=== PATIENT | female | born 1945 | race Caucasian/White ===

== ENCOUNTER 2018-10-25 11:38 | Inpatient (IN) ==
[2018-10-25] MEDS ORDERED: MORPHINE IV ONE (11:55)
[2018-10-25] MEDS ORDERED: ZOFRAN IV ONE (11:55)
[2018-10-25] MEDS ORDERED: NORFLEX IV ONE (11:55)
[2018-10-25 12:56] LABS: BASO# 0.03 X1000 (0.0-0.2); BASO% 0.2 % (0.0-0.8); EOS# 0.05 X1000 (0.0-0.7); EOS% 0.3 % (0.0-10.0); HEMATOCRIT 35.1 % (37.0-47.0); HEMOGLOBIN 11.3 g/dL (12.0-16.0); LYMPH# 0.97 X1000 (1.2-3.4); MCH 29.4 PG (27-31); MCHC 32.2 g/dL (33-37); MCV 91.4 FL (81-99); MONO# 0.64 X1000 (0.11-0.59); MONO% 3.9 % (1.7-9.3); MPV 10.5 FL (7.4-10.4); NEUT# 14.55 X1000 (1.4-6.5); NEUT% 89.6 % (42.2-75.2); PLT 375 X1000 (130-400); RBC 3.84 XMIL (4.2-5.4); RDW 16.2 % (11.5-14.5); WBC 16.24 X1000 (4.8-10.8)
[2018-10-25 12:57] LABS: AGAP 12; ALB/GLOB RATIO 1.4; ALBUMIN 3.3 g/dL (3.5-5.0); ALKALINE PHOSPHATASE 82 U/L (32-104); BUN 15 mg/dL (8-22); CALCIUM 8.2 mg/dL (8.8-10.2); CHLORIDE 102 mmol/L (98-107); COSMO 283; CREATININE 0.8 mg/dL (0.5-0.9); ESTIMATED GFR > 60; GLUCOSE 147 mg/dL (70-104); GOT 18 U/L (10-30); GPT 13 U/L (10-36); POTASSIUM 3.6 mmol/L (3.5-5.1); SODIUM 140 mmol/L (136-145); TCO2 26 mmol/L (25-35); TOTAL BILIRUBIN 0.31 mg/dL (0.20-1.00); TOTAL PROTEIN 5.7 g/dL (6.3-8.3)
[2018-10-25] MEDS ORDERED: DILAUDID IV ONE (13:26)
--- NOTE | 2018-10-25 13:31 | Diag Imaging Result Doc PS360 ---
EXAM: HIP 1 VIEW RIGHT INDICATION: fall, right hip pain TECHNIQUE: 3 views COMPARISON: None. FINDINGS: There is an acute fracture through the right femoral neck. There is superior displacement of the femoral shaft. A metallic plate is associated with the femoral shaft from a prior injury. No other fractures are appreciated. The surrounding soft tissues are essentially unremarkable. IMPRESSION: Fracture of the right femoral neck as described. Electronically signed by Mark Anthony Fuentes 10/25/2018 1:29 PM
[2018-10-25] MEDS ORDERED: NS 1,000 ML IV ONE (13:39)
[2018-10-25] MEDS ORDERED: ZOFRAN IV PRN (13:39)
[2018-10-25] MEDS ORDERED: DILAUDID IM PRN (13:39)
--- NOTE | 2018-10-25 13:39 | Diag Imaging Result Doc PS360 ---
EXAM: CHEST-1 VIEW INDICATION: admit TECHNIQUE: One view COMPARISON: None. FINDINGS: There is elevation of the right hemidiaphragm. There is a right paratracheal masslike density that is nonspecific but could represent a substernal thyroid goiter. The lungs are clear, otherwise. There is no discrete pleural fluid collection or pneumothorax. The cardiac silhouette and central vasculature are unremarkable. IMPRESSION: Nonspecific right paratracheal masslike density that could represent a substernal thyroid. Otherwise, no definite acute chest pathology. Electronically signed by Mark Anthony Fuentes 10/25/2018 1:37 PM
--- NOTE | 2018-10-25 13:39 | PROVIDER DOCUMENTATION ---
This chart was entered by Linda David Scribe, acting as scribe for Velvet Johns MD. 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 pt has obvious shortened and rotated RLE with right hip pain. pt denies LOC or head trauma in fall. pt on exam sts palpation and movement makes it worse Quality of Pain: reports: sharp, stabbing Severity in ED: moderate Onset/Duration: just prior to arrival Timing: still present, intermittent Modifying Factors: improves with: immobilization. worse with: movement, palpation Any recent injury?: Yes (fall at home) Locality of Occurance: Home Similar Symptoms Previously?: No Recently seen or treated by another doctor?: No - FALL INJURY Location of Pain/Injury: reports: other (hip) Reason for Fall: reports: tripped Symptoms prior to fall:: reports: none Injury Associated Symptoms: reports: snap/crack/pop sensation, unable to bear weight, trouble walking. denies: nausea, vomiting Review of Systems - Adult - REVIEW OF SYSTEMS - ADULT Constitutional: reports: no symptoms reported Eyes: denies: blurred vision, double vision Ears, Nose, Mouth & Throat: reports: no symptoms reported Cardiovascular: denies: chest pain, palpitations Respiratory: reports: no symptoms reported Gastrointestinal: denies: abdominal pain, diarrhea, nausea, vomiting Genitourinary: reports: no symptoms reported Musculoskeletal: reports: see HPI, joint pain. denies: back pain, neck pain Integumentary: reports: no symptoms reported Neurological: denies: dizziness/vertigo, headache/migraines Psychiatric: reports: no symptoms reported Endocrine: reports: no symptoms reported Hematologic/Lymphatic: reports: no symptoms reported Allergic/Immunologic: reports: no symptoms reported All Other Systems: Reviewed and Negative Past History - Adult - PAST MEDICAL HISTORY-ADULT Review of Records: reports: Old Records Reviewed, Nursing Assessment Review, Medications Reviewed, Social history reviewed & non-contributory. Major Childhood Illnesses: reports: denies history Cardiovascular: reports: HTN, hyperlipidemia Respiratory: reports: denies history Gastrointestinal: reports: denies history Obstetrical/Gynecological: reports: denies history Genitourinary: reports: denies history Musculoskeletal: reports: denies history Neurological: reports: denies history Psychiatric: reports: depression Endocrine/Immune: reports: denies history Other Conditions: reports: denies history - PRIOR SURGERIES/PROCEDURES Surgical/Procedure History: reports: cholecystectomy, hysterectomy, orthopedic (extremity) - IMMUNIZATION STATUS Childhood Immunizations: See Nurse Assessment Flu Vaccine: See Nurse Assessment - FAMILY HISTORY Family History: reviewed, not pertinent - SOCIAL HISTORY Smoking: denies Substance Use: denies Alcohol Use Frequency: never Living Situation: family Physical Exam-Injury Related - Physical Exam-Injury Related Initial Vital Signs Reviewed: Yes General Appearance: appears well, alert, mild distress Eyes: PERRL/EOMI, pink conjunctivae Head, Ears, Nose, Mouth & Throat: moist mucous membranes Neck: non-tender, full range of motion, supple, normal inspection Respiratory: chest non-tender, lungs clear, normal breath sounds Cardiovascular: normal peripheral pulses, regular rate, rhythm Chest/Breast: deferred Abdominal Exam: normal bowel sounds, non tender, soft Female Genitalia/Pelvic Exam: deferred Rectal Exam: deferred Hemoccult Exam: deferred Lymphatic: no adenopathy Back Exam: normal inspection, no CVA tenderness, no vertebral tenderness Extremity: normal capillary refill, tenderness (rt hip), other (RLE S/R). negative: normal gait Integumentary: normal color, warm/dry Neurologic: grossly normal Psych/Mental Status: normal mood/affect, normal thought content, normal thought process, oriented x 3 Progress - PLAN OF CARE/RESULTS Progress/Plan/Lab Results: Vital Signs - 8 hr 10/25/18 11:46 10/25/18 11:47 10/25/18 12:15 Temperature 97.8 F Pulse Rate 84 87 Respiratory Rate 16 19 Blood Pressure 149/82 O2 Sat by Pulse Oximetry 98 98 99 10/25/18 12:30 10/25/18 13:00 Temperature Pulse Rate 87 88 Respiratory Rate 18 20 Blood Pressure O2 Sat by Pulse Oximetry 97 98 Laboratory Results - last 24 hr 10/25/18 10/25/18 12:22 12:22 WBC 16.24 H RBC 3.84 L Hgb 11.3 L Hct 35.1 L MCV 91.4 MCH 29.4 MCHC 32.2 L RDW Std Deviation 16.2 H Plt Count 375 MPV 10.5 H Neut % (Auto) 89.6 H Lymph % (Auto) 6.0 L Isabela % (Auto) 3.9 Eos % (Auto) 0.3 Baso % (Auto) 0.2 Neut # (Auto) 14.55 H Lymph # (Auto) 0.97 L Isabela # (Auto) 0.64 H Eos # (Auto) 0.05 Baso # (Auto) 0.03 Sodium 140 Potassium 3.6 Chloride 102 Carbon Dioxide 26 Anion Gap 12 BUN 15 Creatinine 0.8 Estimated GFR/1.73 m2 > 60 BUN/Creatinine Ratio 19 Glucose 147 H Calculated Osmolality 283 Calcium 8.2 L Total Bilirubin 0.31 AST 18 ALT 13 Alkaline Phosphatase 82 Total Protein 5.7 L Albumin 3.3 L Globulin 2.4 Albumin/Globulin Ratio 1.4 Orders Category Date Time Status CHEST-1 VIEW [RAD] Stat Exams 10/25/18 12:07 Taken HIP 1 VIEW RIGHT [RAD] Stat Exams 10/25/18 11:54 Completed CBC WITH ELECTRONIC DIFF [HEME] Stat Lab 10/25/18 12:22 Completed COMPREHENSIVE METABOLIC PANEL [CHEM] Stat Lab 10/25/18 12:22 Completed Hydromorphone [Dilaudid] Med 10/25/18 13:26 Discontinued 1 mg IV NOW ONE Morphine Med 10/25/18 11:55 Discontinued 2 mg IV NOW ONE Ondansetron [Zofran] Med 10/25/18 11:55 Discontinued 4 mg IV NOW ONE Orphenadrine [Norflex] Med 10/25/18 11:55 Discontinued 30 mg IV NOW ONE Result Diagrams: 10/25/18 12:22 10/25/18 12:22 - REASSESSMENT Reassessment #1 Time Reassessed: 12:19 Status: unchanged - XRAY 1 XRAY: Bilateral XRAY Study: Chest Impression: See EMR Report 2 XRAY: Right XRAY Study: Hip Impression: Discussed w/Radiology, See EMR Report - CONSULTS/PCP/HOSPITALIST Notification #1 *Consult/PCP/Hospitalist*: hospitalist dr goncalves Time Discussed: 12:19 Consult Disposition: Admit #2 Consult: ortho dr knapp Time Discussed: 13:34 Reason/Comments: phone consult Departure - Departure Date of Disposition Decision: 10/25/18 Time of Disposition Decision: 13:38 DIAGNOSIS: Femoral neck fracture Qualifiers: Encounter type: initial encounter Fracture type: closed Laterality: right Qualified Code(s): S72.001A - Fracture of unspecified part of neck of right femur, initial encounter for closed fracture Disposition: ADMITTED INPATIENT 09 Certified Medical Emergency: Emergent Condition: Stable Referrals and Follow-Ups: None,PCP [Primary Care Provider] - - Critical Care Note This patient required my direct & personal management of CC.: No Attestation - Physician/ SEB Attestation Patient care was provided by Advanced Practice Provider:: No The physician spent face to face time with patient:: Yes Advanced Practice Provider documentation review:: Supervising physician onsite and consulted in the evaluation and care of this patient. The physician did have a face to face encounter with the patient. This chart was documented by the indicated scribe, (Linda David Scribe) and accurately reflects the services I performed and decisions made by me, Velvet Johns MD, as attested by the provider's signature.
--- NOTE | 2018-10-25 14:31 | HISTORY AND PHYSICAL ---
PRIMARY CARE PHYSICIAN: Is in [place]. CHIEF COMPLAINT: A fall with right hip pain and a rotated and shortened right lower extremity. HISTORY OF PRESENTING ILLNESS: This is a 73-year-old female who presents to [facility] via EMS after she was at home and walked outside with her great grandchildren and got tripped up by her dog and fell onto her right hip, had immediate right hip pain. The right lower extremity is noted to be externally rotated and shortened. Pain is elicited with any movement. Unable to bear any weight. Her workup showed a right hip x-ray with a fracture of the right femoral neck that is superiorly displaced of the femoral shaft, so she will be admitted for further evaluation and treatment. PAST MEDICAL HISTORY: Hypertension, hyperlipidemia, and depression. PAST SURGICAL HISTORY: Cholecystectomy, hysterectomy, and extremity surgery. FAMILY HISTORY: Reviewed and noncontributory. SOCIAL HISTORY: She currently lives with family. Denies any tobacco, alcohol or illicit drug use. ALLERGIES: She has no known drug allergies. HOME MEDICATIONS: She takes Norvasc 5 mg p.o. at bedtime, clonazepam 1 mg p.o. t.i.d., Prozac 20 mg p.o. daily, lisinopril 40 mg p.o. at bedtime and Mevacor 20 mg p.o. at bedtime. LABORATORY DATA: Showed a white blood cell count of 16.24, hemoglobin 11.3, hematocrit 35.1, platelets 375,000. Sodium 140, potassium 3.6, chloride 102, CO2 26, BUN of 15, creatinine 0.8, glucose 147. IMAGING: Right hip x-ray showed fracture of the right femoral neck. Chest x-ray showed a nonspecific right paratracheal masslike density that could represent a substernal thyroid. Otherwise, no definite acute chest pathology. REVIEW OF SYSTEMS: She denied any fever, chills, blurred vision, dizziness, chest pain, coughing, shortness of breath. She denied any abdominal pain, constipation, diarrhea, burning or hurting with urination. She does have pain to her right leg with movement and in her hip area. PHYSICAL EXAMINATION: VITAL SIGNS: On arrival, she had a temperature of 97.8 degrees, pulse 84, respirations 16, blood pressure 149/82, saturating 99% on room air. GENERAL: This is a 73-year-old female who is lying in the bed and answers questions appropriately. HEENT: Normocephalic, atraumatic. Normal ENT inspection. Oropharynx and nares are clear. EYES: Pupils are equal, round, reactive to light and accommodation. Extraocular movements are intact. NECK: Normal inspection, normal range of motion. LUNGS: Clear to auscultation bilaterally with equal lung expansion and chest wall movement. HEART: Regular rate and rhythm. No murmurs, rubs, or gallops. ABDOMEN: Soft, nontender, nondistended. Bowel sounds are present x4 quadrants. MUSCULOSKELETAL: She had 5/5 strength to her bilateral upper extremities and left extremity. Did not assess any movement in the right leg since she has a right hip fracture. NEUROLOGICAL: The cranial nerves 2-12 appear grossly intact. ASSESSMENT: 1. A right femoral neck fracture. 2. Leukocytosis, most likely reactive. 3. Hypertension, history of. 4. Hyperlipidemia, history of. PLAN: She will be admitted to the surgical unit, placed on strict bedrest. We will place a Donahue catheter and check a UA to rule out a UTI. We will check an EKG. Place her on Lovenox 40 mg subcutaneous q.24 for DVT prophylaxis, normal saline at 100 mL an hour, Dilaudid 1 mg IM q.4 hours p.r.n., Zofran 4 mg IV q.4 hours p.r.n. Continue home medications. Hold n.p.o. after midnight. Consult Orthopedics and recheck CBC, BMP in the a.m. Further orders after seen by attending and by domestic travel consultant. Dictated by LAMAR Holliday for Carlos Casiano MD cc: LAMAR Holliday MD
[2018-10-25] MEDS ORDERED: LOVENOX SUBQ SCH (14:37)
[2018-10-25 14:42] LABS: URINE SOURCE CATH
[2018-10-25 14:44] LABS: BILIRUBIN URINE NEGATIVE (NEGATIVE); BLOOD URINE TRACE (NEGATIVE); COLOR YELLOW; GLUCOSE URINE NEGATIVE (NEGATIVE); KETONE URINE 20 mg/dL (NEGATIVE); LEUKOCYTES URINE TRACE (NEGATIVE); NITRITE URINE NEGATIVE (NEGATIVE); PH URINE 6.5; PROTEIN URINE NEGATIVE (NEGATIVE); SP GRAVITY URINE 1.014; TURBIDITY URINE HAZY (CLEAR); UROBILINOGEN URINE 2 mg/dL (NORMAL)
[2018-10-25 14:45] LABS: UR EPITHELIAL CELLS <10 /HPF (<10); URINE BACTERIA 4+ /HPF; URINE RBC <10 /HPF (<10)
[2018-10-25] MEDS: KLONOPIN PO SCH (16:08)
[2018-10-25 17:40] LABS: BASO# 0.01 X1000 (0.0-0.2); BASO% 0.1 % (0.0-0.8); HEMATOCRIT 37.4 % (37.0-47.0); HEMOGLOBIN 12.1 g/dL (12.0-16.0); IMM GRAN% 0.6 % (0.0-0.5); LYMPH# 0.39 X1000 (1.2-3.4); LYMPH% 2.2 % (20.5-51.1); MCH 28.9 PG (27-31); MCHC 32.4 g/dL (33-37); MCV 89.5 FL (81-99); MONO% 6.2 % (1.7-9.3); MPV 10.4 FL (7.4-10.4); NEUT# 16.22 X1000 (1.4-6.5); NEUT% 90.9 % (42.2-75.2); PLT 368 X1000 (130-400); RBC 4.18 XMIL (4.2-5.4); RDW 15.8 % (11.5-14.5); WBC 17.82 X1000 (4.8-10.8)
[2018-10-25 17:48] LABS: INR 1.04; PROTIME 13.7 Seconds (11.0-16.0)
[2018-10-25 17:49] LABS: PTT 31.1 Seconds (22.3-41.8)
[2018-10-25 18:04] LABS: AGAP 13; ALKALINE PHOSPHATASE 147 U/L (32-104); BUN 14 mg/dL (8-22); CALCIUM 8.3 mg/dL (8.8-10.2); CHLORIDE 99 mmol/L (98-107); CK PROFILE 33 U/L (24-173); COSMO 280; CREATININE 0.9 mg/dL (0.5-0.9); ESTIMATED GFR > 60; GLUCOSE 172 mg/dL (70-104); GOT 248 U/L (10-30); GPT 70 U/L (10-36); POTASSIUM 3.7 mmol/L (3.5-5.1); SODIUM 138 mmol/L (136-145); TCO2 26 mmol/L (25-35)
[2018-10-25] MEDS ORDERED: KEFZOL 1 GM/D5W 1 GM/50 ML IVPB IV ONE (18:15)
[2018-10-25 18:22] LABS: LYMPHS 4 % (21-51); MONO 7 % (1-9); SEGS 89 % (42-75)
--- NOTE | 2018-10-25 19:05 | ORTHOPAEDICS CONSULTATION ---
DATE: 10/25/2018 CHIEF COMPLAINT: Right hip pain. HISTORY OF PRESENT ILLNESS: Julia Ahmadi is a 73-year-old female who had a same-level fall when she tripped over a toy while going to feed her dog today. She reports no loss of consciousness. She complains of right hip pain. She is a household ambulator. She has had previous surgery on her right femur. She has no other complaints. PAST MEDICAL HISTORY: Significant for hypertension, depression, and hyperlipidemia. PAST SURGICAL HISTORY: Includes her right femur, knee, hysterectomy and cholecystectomy. SOCIAL HISTORY: She denies tobacco, alcohol or drug use. ALLERGIES: No known drug allergies. HOME MEDICATIONS: See admission medication list. REVIEW OF SYSTEMS: A 12 point review of systems was performed and except as noted in the history of present illness was within normal limits. PHYSICAL EXAM: Well-developed, well-nourished female, she is cooperative with exam. She has pain with any range of motion of her right hip. Her leg is shortened and externally rotated. Her leg is otherwise neurovascularly intact. Her x-rays show a right femoral neck fracture and the superior portion of a plate attached to her femur. ASSESSMENT: Right displaced femoral neck fracture. PLAN: I think we need to proceed with a right bipolar hemiarthroplasty. I have discussed with her the risks, benefits, and alternatives of this including but not limited to bleeding, nerve damage, infection, risk from anesthesia, dislocation, blood clots up to including loss of limb, life and other imponderables. She voices her understanding requests we proceed as planned, will schedule surgery in the morning for a right bipolar hemiarthroplasty . cc: Meliton Bardales MD
--- NOTE | 2018-10-25 19:32 | Diag Imaging Result Doc PS360 ---
EXAM: FEMUR MIN 2 VIEWS RIGHT INDICATION: R femoral neck fx w/ indwelling hardware TECHNIQUE: 3 views COMPARISON: None. FINDINGS: There is a known acute fracture involving the right femoral neck that is out of the [id number] as seen on an earlier radiograph. There is an old healed fracture involving the distal shaft of the femur and there is metallic hardware indicating prior ORIF. No other acute fractures are identified. 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 The surrounding soft tissues are essentially unremarkable. IMPRESSION: Chronic changes related to a healed fracture and prior ORIF involving the distal femur as well as degenerative changes at the knee. Aside from the known femoral neck fracture, no other acute fracture is identified. Electronically signed by Mark Anthony Fuentes 10/25/2018 7:30 PM
[2018-10-25] MEDS: PRINIVIL PO SCH (23:02)
[2018-10-25] MEDS: NORVASC PO SCH (23:02)
[2018-10-25] MEDS: MEVACOR PO SCH (23:03)
[2018-10-26 05:52] LABS: BASO# 0.01 X1000 (0.0-0.2); BASO% 0.1 % (0.0-0.8); EOS# 0.03 X1000 (0.0-0.7); EOS% 0.3 % (0.0-10.0); HEMATOCRIT 36.5 % (37.0-47.0); HEMOGLOBIN 11.9 g/dL (12.0-16.0); IMM GRAN# 0.03 X1000 (0.0-0.04); IMM GRAN% 0.3 % (0.0-0.5); LYMPH# 0.74 X1000 (1.2-3.4); LYMPH% 6.2 % (20.5-51.1); MCH 29.5 PG (27-31); MCHC 32.6 g/dL (33-37); MCV 90.3 FL (81-99); MONO# 0.91 X1000 (0.11-0.59); MONO% 7.7 % (1.7-9.3); MPV 10.8 FL (7.4-10.4); NEUT# 10.14 X1000 (1.4-6.5); NEUT% 85.4 % (42.2-75.2); PLT 329 X1000 (130-400); RBC 4.04 XMIL (4.2-5.4); RDW 15.9 % (11.5-14.5); WBC 11.86 X1000 (4.8-10.8)
[2018-10-26 06:18] LABS: AGAP 16; BUN 9 mg/dL (8-22); CALCIUM 8.5 mg/dL (8.8-10.2); CHLORIDE 102 mmol/L (98-107); COSMO 275; CREATININE 0.7 mg/dL (0.5-0.9); ESTIMATED GFR > 60; GLUCOSE 115 mg/dL (70-104); POTASSIUM 4.1 mmol/L (3.5-5.1); SODIUM 138 mmol/L (136-145); TCO2 20 mmol/L (25-35)
[2018-10-26] MEDS ORDERED: KEFZOL 1 GM/D5W 0 GM/0 ML IVPB ONE (06:28)
[2018-10-26] MEDS ORDERED: XYLOCAINE-MPF 2% ONE (07:47)
[2018-10-26] MEDS ORDERED: DIPRIVAN 1% ONE (07:47)
[2018-10-26] MEDS ORDERED: ROBINUL ONE (07:47)
[2018-10-26] MEDS ORDERED: KEFZOL 1 GM/D5W 1 GM/50 ML IVPB ONE (07:55)
[2018-10-26] MEDS ORDERED: SENSORCAINE 0.25%/EPI 1:200,000 ONE (08:06)
[2018-10-26] MEDS ORDERED: DURAMORPH ONE (08:06)
[2018-10-26] MEDS ORDERED: EXPAREL 1.3% ONE (08:06)
[2018-10-26] MEDS ORDERED: TORADOL ONE ×2 (08:06→08:25)
[2018-10-26] MEDS ORDERED: GENTAMICIN ONE (08:06)
[2018-10-26] MEDS ORDERED: SODIUM CHLORIDE 0.9% ONE (08:06)
[2018-10-26] MEDS ORDERED: OFIRMEV 1000 MG/ISOTONIC SOLN 1,000 MG/100 ML BOTTLE ONE (08:23)
[2018-10-26] MEDS ORDERED: DECADRON ONE (08:23)
[2018-10-26] MEDS ORDERED: ZOFRAN ONE (08:25)
--- NOTE | 2018-10-26 10:33 | OPERATIVE NOTE ---
PROCEDURE DATE: 10/26/2018 PREOPERATIVE DIAGNOSIS: Right displaced femoral neck fracture. POSTOPERATIVE DIAGNOSIS: Right displaced femoral neck fracture. PROCEDURE PERFORMED: Right bipolar hemiarthroplasty using a DePuy Actis high-offset size 5 stem with a +5 neck length and a 49 mm bipolar head. ANESTHESIA: General. SURGEON: Mleiton Bardales M.D. 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 COMPLICATIONS: None. BLOOD LOSS: Minimal. DRAINS: Hemovac x1. DESCRIPTION OF PROCEDURE: The patient was brought to the operative suite and placed in the supine position. After successful administration of general anesthesia, the patient was placed on the OSI table in the usual position for right hip. The right hip was prepped and draped in the usual sterile fashion. A longitudinal incision was made beginning 3 cm distal and 3 cm lateral to the anterior superior iliac spine, and extending distally and slightly laterally 8 cm, dissected sharply through skin and subcutaneous tissue down to tensor fascia. Tensor fascia was incised and dissected bluntly down to deep tensor fascia. Deep tensor fascia was incised, and circumflex vessels electrocauterized, exposing the capsule. A T-capsulotomy was performed, exposing the fracture in the femoral neck. Using the oscillating saw, the femoral neck cut was freshened, and the femoral head was removed with power corkscrew, was measured to 49 mm. A 49 mm trial was found to be an excellent fit. Attention was directed to the femur. It was externally rotated, extended, adducted, and elevated out of the wound. The lateral neck was rongeured. The canal was serially broached to a size 5. A size 5 high-offset +5 was trialed and found be excellent fit and fill of the stem, offset, leg length, and stability of the hip. The trial was removed. The definitive stem was seated onto the femur, and then the 28 mm +5 head with a 49 mm bipolar was locked onto the Maza taper, and then the hip was reduced. It was again found to be in excellent position. It was copiously irrigated with normal saline containing irrigant and Vashe irrigation. The anterior capsule was repaired with 0 V-Loc suture. A drain was placed deep to the tensor fascia, and buried around the stem neck. The tensor fascia was then closed with 0 V- Loc. The skin edge was approximated with 2-0 Vicryl, the skin was closed with 4-0 Monocryl and Prineo, and a sterile dressing was applied. The patient tolerated the procedure well without complication. At the end of the procedure, all counts were correct x2. The patient was transferred to the recovery room in stable condition. cc: Meliton Bardales MD
[2018-10-26] MEDS ORDERED: NS 1,000 ML ONE (10:42)
[2018-10-26] MEDS ORDERED: ULTRAM PO PRN (10:43)
[2018-10-26] MEDS ORDERED: ZOFRAN ODT PO PRN (10:45)
[2018-10-26] MEDS ORDERED: ZOFRAN IV PRN (10:45)
[2018-10-26] MEDS ORDERED: OXY IR PO PRN ×2 (10:45)
[2018-10-26] MEDS ORDERED: MORPHINE IV PRN ×3 (10:45)
[2018-10-26] MEDS ORDERED: MILK OF MAGNESIA PO PRN (11:00)
[2018-10-26] MEDS: KLONOPIN PO SCH ×3 (13:47→17:32)
[2018-10-26] MEDS: LEVAQUIN 250 MG/D5W 250 MG/50 ML IVPB IV SCH (14:20)
[2018-10-26] MEDS: PROZAC PO SCH (14:35)
--- NOTE | 2018-10-26 14:53 | PROGRESS NOTE ---
DATE: 10/26/2018 SUBJECTIVE: This morning Ms. Ahmadi refers to be doing okay. She actually came out of surgery not long ago. OBJECTIVE: Vital signs: Blood pressure is 136/85, pulse of 92, respirations 18. Temperature is 98.4. General: Ms. Ahmadi is a 73-year-old female. She is in bed, no distress. HEENT: Mucosa is pink and moist. Anicteric. Acyanotic. Neck: Supple. Chest: Clear to auscultation. Cardiovascular: Regular rate and rhythm. There are no murmurs, no rubs, no gallops. GI/Abdomen: Soft. Globally distended but nontender. Bowel sounds present. Extremities: No pedal edema. 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 Musculoskeletal: There is a new dressing over the anterior part of the right thigh from the surgery. There is also a drainage system in place. The patient's right lower extremity is neurovascularly intact. LABORATORY DATA: WBC is down to 11.86, hemoglobin is 11.9, platelet count of 329. Chemistry is also reviewed, completely normal. The patient's urine is showing gram-negative zainab. ASSESSMENT: 1. Status post fall resulting into a right femoral neck fracture. Patient is status post orthopedic intervention. A right bipolar hemiarthroplasty was done today by Dr. Bardales. 2. Gram-negative zainab urinary tract infection. Patient is currently on Levaquin. She is also on cefazolin for surgical prophylaxis. 3. Hypertension. 4. Dyslipidemia. In general, Ms. Ahmadi is doing a lot better. She is immediate postop. We are going to continue with recommendations from Orthopedics. We are also covering Ms. Ahmadi for gram- negative zainab UTI. cc: Carlos Casiano MD
[2018-10-26] MEDS: KEFZOL 1 GM/D5W 1 GM/50 ML IVPB IV SCH ×2 (15:58→23:59)
[2018-10-26] MEDS: NS 1,000 ML IV SCH (17:39)
[2018-10-26] MEDS: COLACE PO SCH (22:17)
[2018-10-26] MEDS: MEVACOR PO SCH (22:17)
[2018-10-26] MEDS: PRINIVIL PO SCH (22:17)
[2018-10-26] MEDS: NORVASC PO SCH (22:18)
[2018-10-27] MEDS: LYRICA PO SCH ×2 (05:30→10:14)
[2018-10-27 06:35] LABS: HEMATOCRIT 29.8 % (37.0-47.0); HEMOGLOBIN 9.4 g/dL (12.0-16.0)
[2018-10-27] MEDS: NS 1,000 ML IV SCH ×2 (06:51→17:11)
[2018-10-27] MEDS: LOVENOX SUBQ SCH (06:51)
[2018-10-27 07:03] LABS: CALCIUM 8.2 mg/dL (8.8-10.2); POTASSIUM 4.1 mmol/L (3.5-5.1)
--- NOTE | 2018-10-27 09:44 | HISTORY AND PHYSICAL ---
ADDENDUM: Miss Ahmadi was brought to the emergency room today after she sustained a fall. She reports that she tripped trying to go and take care of her dog and fell sustaining a trauma to the right hip. She was immediately unable to bear weight. She came to the emergency department, was evaluated, and initial x-ray seems to suggest displaced fracture of the right femoral neck. Miss Ahmadi also has a history of hypertension, dyslipidemia, and depression on medications which have all been reviewed. PHYSICAL EXAMINATION: HEENT: Positive for dry mucosa. CARDIOVASCULAR: Mild tachycardic, but no murmurs. ABDOMEN: Soft. EXTREMITIES: The right lower extremity is slightly shortened and externally rotated. There are 2 surgical scars on the anterior knee from previous surgeries. There is also a scar on the lateral aspect of the right thigh. IMAGING STUDIES: The patient's imaging studies have also been reviewed and her lab work also has been reviewed. ASSESSMENT: 1. Status post mechanical fall resulting into a right femoral neck displaced fracture. The patient has been evaluated by Orthopedics. There is a plan for intervention tomorrow. For now she denies any chest pain. She is not in any congestive heart failure. She denies any chronic renal or liver pathology. She is going for a moderate nonvascular orthopedic surgery in a low to moderate risk patient. We think she is okay for surgery at this point, and we recommend surgery to proceed. 2. Hypertension. 3. Dyslipidemia. 4. History of depression/anxiety on fluoxetine and Klonopin at home. Please refer to the details of the H and P which was dictated by the nurse practitioner in the chart. cc: Carlos Casiano MD
[2018-10-27] MEDS: PERIDEX MT SCH ×2 (10:13→19:59)
[2018-10-27] MEDS: MOBIC PO SCH (10:14)
[2018-10-27] MEDS: PEPCID PO SCH (10:14)
[2018-10-27] MEDS: COLACE PO SCH ×2 (10:14→19:59)
[2018-10-27] MEDS: PROZAC PO SCH (10:14)
--- NOTE | 2018-10-27 12:33 | ORTHOPAEDICS PROGRESS NOTE ---
DATE: 10/27/2018 SUBJECTIVE: Julia Ahmadi is a 73-year-old female who is postoperative day 1 from a right bipolar hemiarthroplasty. She has complaints of mild soreness, but otherwise is doing well. OBJECTIVE: She is a well-developed, well-nourished female. She is alert and cooperative with the exam. Her vital signs are stable. She is afebrile. DIAGNOSTIC STUDIES: Her hematocrit is 29.8. ASSESSMENT: Stable right hip bipolar hemiarthroplasty. PLAN: We will remove her drain today. She will begin therapy and likely go to rehabilitation later in the week. cc: Meliton Bardales MD
--- NOTE | 2018-10-27 14:07 | PROGRESS NOTE ---
DATE: 10/27/2018 SUBJECTIVE: This morning, Ms. Ahmadi refers to be doing okay. No new complaints. OBJECTIVE: Vital signs: Blood pressure is 134/79, pulse of 90, respiration is 18, temperature 98.1 degrees. On general exam, Ms. Ahmadi is a 73-year-old female. She is in bed. No distress. Mucosa is pink and moist. Anicteric. Acyanotic. Neck is supple. Chest: Good air entry bilateral. There were no crepitations, no rhonchi. Cardiovascular: Regular rate and rhythm. Abdomen: Soft, nontender. Inguinal region is unremarkable. Donahue catheter is still in place. Central Nervous System: Patient is sleepy, but easily arousable. Follows commands. Skin: The right upper anterior surgical wound looks clean. There is still some drainage in the thigh. Extremities: The right lower extremity is neurovascularly intact. DIAGNOSTIC STUDIES: Hemoglobin is 9.4. Chemistry is also reviewed, completely unremarkable. The patient's urine culture is positive for E coli. ASSESSMENT: 1. Status post fall resulting into a right femoral neck fracture. Patient is status post right bipolar hemiarthroplasty. Today is day 1 postoperatively. She has been evaluated by Physical Therapy. She seems to be doing well. There is a plan to get her to rehabilitation during the week. 2. Escherichia coli urinary tract infection. Patient is on Levaquin. 3. Hypertension, controlled. 4. Dyslipidemia. So in general, I think Ms. Ahmadi is doing a lot better. She is currently on Levaquin for UTI. She was evaluated by Physical Therapy this morning. She was able to do about 5 feet. We are going to discontinue the Donahue catheter and consult Social Work for rehabilitation placement. cc: Carlos Casiano MD
[2018-10-27] MEDS: LEVAQUIN 250 MG/D5W 250 MG/50 ML IVPB IV SCH (17:08)
[2018-10-27] MEDS: TYLENOL PO PRN (19:59)
[2018-10-27] MEDS: KLONOPIN PO PRN (19:59)
[2018-10-27] MEDS: MEVACOR PO SCH (19:59)
[2018-10-27] MEDS: PRINIVIL PO SCH (19:59)
[2018-10-27] MEDS: NORVASC PO SCH (19:59)
[2018-10-28] MEDS: LYRICA PO SCH ×3 (03:49→23:38)
[2018-10-28 06:02] LABS: HEMATOCRIT 25.3 % (37.0-47.0); HEMOGLOBIN 7.9 g/dL (12.0-16.0)
[2018-10-28] MEDS: LOVENOX SUBQ SCH (06:55)
[2018-10-28] MEDS: PERIDEX MT SCH ×2 (08:52→23:38)
[2018-10-28] MEDS: PROZAC PO SCH (08:52)
[2018-10-28] MEDS: COLACE PO SCH ×2 (08:52→23:38)
[2018-10-28] MEDS: PEPCID PO SCH (08:53)
[2018-10-28] MEDS: MOBIC PO SCH (08:53)
--- NOTE | 2018-10-28 13:38 | PROGRESS NOTE ---
DATE: 10/28/2018 SUBJECTIVE: This morning Ms. Ahmadi refers to be doing fairly okay. The daughter was at the bedside at the time of the encounter. Ms. Ahmadi's Donahue catheter has been removed, and his Hemovac has also been removed. She was evaluated by physical therapy yesterday. OBJECTIVE: Vital signs: Blood pressure 153/83, pulse of 103, respirations 20, and temperature is 98.9 degrees. The patient is saturating 100% on room air. General: Ms. Ahmadi is a 73-year- old female. She is in bed in no distress. HEENT: Mucosa is pink and moist. Anicteric. Acyanotic. Neck: Supple. Chest: Good air entry bilaterally. There were no crepitations. No rhonchi. Cardiovascular: Regular rate and rhythm. Abdomen: Soft. Bowel sounds present. Extremities: No pedal edema. The right leg is neurovascularly intact. The Hemovac catheter has been removed. LABORATORY: Hemoglobin is 7.9. No chemistry for this morning. ASSESSMENT: 1. Status post mechanical fall resulting into a right femoral neck fracture. The patient is status post right bipolar hemiarthroplasty. Today, is day 2 postop. She is doing well with physical therapy with pending possible rehab placement. 2. E. Coli UTI. Patient is on Levaquin. Today is day 2. We plan to treat this for a total of 5 days. 3. Hypertension. We will continue titrating her medications. 4. Dyslipidemia. Patient is on statin. 5. Peripheral diabetic neuropathy. Patient is on Lyrica. 6. Situational depression and anxiety. Patient is on Prozac and Klonopin. 7. Postoperative anemia. The patient's hemoglobin is down to 7.9. She does not seems to have any overt signs of bleeding. I think this is a combination of blood loss during surgery and dilution. We are going to repeat this tomorrow and follow it up accordingly. cc: MD EVELYNE Maya
--- NOTE | 2018-10-28 14:01 | ORTHOPAEDICS PROGRESS NOTE ---
DATE: 10/28/2018 SUBJECTIVE: Julia Ahmadi is a 73-year-old female who is postoperative day 3 from a right bipolar. She has no complaints. OBJECTIVE: She is a well-developed, well-nourished female. She is cooperative with the exam. She does not remember me. Her wound is healing nicely. There is no sign of infection. She is sitting in a chair comfortably. ASSESSMENT: Stable right hip. PLAN: She will likely go to rehab later in the week. We will continue her with physical therapy. She will follow up with me next week. cc: Meliton Bardales MD
[2018-10-28] MEDS: LEVAQUIN 250 MG/D5W 250 MG/50 ML IVPB IV SCH (14:14)
[2018-10-28] MEDS: KLONOPIN PO PRN (23:38)
[2018-10-28] MEDS: TYLENOL PO PRN (23:38)
[2018-10-28] MEDS: MEVACOR PO SCH (23:39)
[2018-10-28] MEDS: PRINIVIL PO SCH (23:39)
[2018-10-28] MEDS: NORVASC PO SCH (23:39)
[2018-10-29 05:53] LABS: HEMATOCRIT 25.5 % (37.0-47.0)
[2018-10-29] MEDS: LOVENOX SUBQ SCH (06:31)
[2018-10-29] MEDS: PEPCID PO SCH (09:46)
[2018-10-29] MEDS: PROZAC PO SCH (09:46)
[2018-10-29] MEDS: MOBIC PO SCH (09:46)
[2018-10-29] MEDS: COLACE PO SCH ×2 (09:46→23:18)
[2018-10-29] MEDS: LYRICA PO SCH ×2 (09:46→23:18)
[2018-10-29] MEDS: PERIDEX MT SCH ×2 (09:47→23:19)
[2018-10-29] MEDS: LEVAQUIN 250 MG/D5W 250 MG/50 ML IVPB IV SCH (14:52)
[2018-10-29] MEDS ORDERED: HALL'S COUGH LOZENGE MT PRN (17:40)
--- NOTE | 2018-10-29 18:13 | PROGRESS NOTE ---
DATE: 10/29/2018 SUBJECTIVE: Today Ms. Ahmadi refers to be doing a whole lot better. She says she worked very well with physical therapy. Per documentation, she seems to have walked 360 feet with minimal assistance. OBJECTIVE: Vital signs: Blood pressure is 150/78, pulse of 93, respirations 16, temperature 98.1 degrees. General: Ms. Ahmadi is a 73-year-old female. She is in bed. No distress. HEENT: Mucosa is pink and moist. Anicteric. Acyanotic. Neck: Supple. Chest: Clear to auscultation. Cardiovascular: Regular rate and rhythm. Abdomen: Soft. Extremities: No pedal edema. 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 Musculoskeletal: The right lower extremity seems to be neurovascularly intact. The anterior upper surgical access looks remarkably clean. No bleeding. LABS: Patient's hemoglobin is 8.0. ASSESSMENT: 1. Status post mechanical fall resulting into a right femoral neck fracture. Patient is status post right bipolar hemiarthroplasty. Today is day 3. The patient is doing pretty well with physical therapy. 2. Escherichia coli urinary tract infection. Patient is on Levaquin. Today is day 3. She has 2 more days on treatment. 3. Hypertension. Controlled on medications. 4. Dyslipidemia. Patient is on statin. 5. Peripheral diabetic neuropathy. Patient is on Lyrica. 6. Postoperative pneumonia. Hemoglobin and hematocrit are stable. The patient denies any overt bleeding. PLAN: In general, I think Ms. Ahmadi is doing a lot better. There is a plan to get her to rehab hopefully tomorrow. However, depending on physical therapy report, I think she might also be okay going home on Home Health. We will be waiting on final recommendations from Orthopedics to see if they will be okay with her going home or to rehab. cc: Carlos Casiano MD
[2018-10-29] MEDS: NORVASC PO SCH (23:18)
[2018-10-29] MEDS: PRINIVIL PO SCH (23:18)
[2018-10-29] MEDS: MEVACOR PO SCH (23:18)
[2018-10-30] MEDS: LOVENOX SUBQ SCH (06:28)
[2018-10-30] MEDS: PROZAC PO SCH (08:30)
[2018-10-30] MEDS: COLACE PO SCH (08:31)
[2018-10-30] MEDS: PERIDEX MT SCH (08:32)
[2018-10-30] MEDS: MOBIC PO SCH (08:32)
[2018-10-30] MEDS: PEPCID PO SCH (08:35)
[2018-10-30] MEDS: LYRICA PO SCH (08:43)
--- NOTE | 2018-10-30 12:00 | DISCHARGE SUMMARY ---
ADMISSION DATE: 10/25/2018 DISCHARGE DATE: 10/30/2018 DISPOSITION: [facility]. FOLLOW UP: Dr. Bardales. CONSULTATION DURING ADMISSION: Orthopedics was consulted. Patient was seen by Dr. Bardales. INVASIVE PROCEDURES DONE DURING ADMISSION: Right bipolar hemiarthroplasty was done by Dr. Bardales on 10/26/2018. IMAGING STUDIES OF SIGNIFICANCE: 1. Hip x-ray showed fracture of the right femoral neck. 2. A chest x-ray showed nonspecific right paratracheal mass like density. ADMISSION DIAGNOSES: 1. Right femoral neck fracture. 2. Leukocytosis. 3. Hypertension. 4. Dyslipidemia. DIAGNOSES AT TIME OF DISCHARGE: 1. Status post mechanical fall resulting into a right femoral neck fracture. The patient is status post right bipolar hemiarthroplasty. 2. E. coli UTI. Patient has finished treatment with Levaquin. 3. Hypertension controlled. 4. Dyslipidemia. 5. Peripheral diabetic neuropathy. Patient is on Lyrica. 6. Postoperative anemia. Hemoglobin and hematocrit is stable. 7. DVT prophylaxis after orthopedic surgery with rivaroxaban. PRESENTING COMPLAINT: Right hip pain. HISTORY OF PRESENTING COMPLAINT: Ms. Ahmadi is a 73-year-old female who has history of hypertension and dyslipidemia, who came to the emergency department after sustaining a mechanical fall after getting tripped over her dog. She did sustain a right hip injury. She was not able to get up on her feet immediately. She was brought to the emergency department. Her imaging studies revealed a right femoral neck displaced fracture. She was subsequently admitted for further medical care. HOSPITAL COURSE: Ms. Ahmadi was admitted to the medical floor. Orthopedist was consulted. Patient was seen by Dr. Bardales. Intervention was done. The patient tolerated the right hemiarthroplasty without any complication. Postoperatively, she was found to have hemoglobin and hematocrit down to about 7.9, but that improved on the next sampling. She is not showing any overt signs of bleeding. She is asymptomatic. She did not need any transfusion. Ms. Ahmadi was also found to have positive urine culture. She did complain of some mild urinary discomfort so she was treated with initially IV antibiotics, and later on with Levaquin for a total of 5 days antimicrobial therapy. She is currently asymptomatic. This morning Ms. Ahmadi refers to be doing okay. Vitals are stable. Blood pressure 154/88, pulse of 83, respirations 20, and temperature 98.5 degrees. Patient is clinically stable. Her physical therapy evaluation yesterday seems to suggest that the patient did 360 feet with minimum assistance. We think she is clinically stable for rehab placement. All the discharge instructions have been discussed with her. She is going to be following up with Dr. Bardales, and also with her PCP in [place]. TIME SPENT: Time spent for discharge is 36 minutes. cc: MD Dr. Kalani Maya
[2018-10-30] MEDS: LEVAQUIN 250 MG/D5W 250 MG/50 ML IVPB IV SCH (12:11)
[2018-10-30 12:34] VITALS: BP 156/74
== END 2018-10-30 13:21 | disposition swing bed (61) | DRG 470 ==
LOC: SUPCPDRO → ED 11:38 → 4N 14:44
PROVIDERS: ATTEND Internal Medicine